=== PATIENT | female | born 1965 | race Caucasian/White ===

== ENCOUNTER → 2019-08-11 | Outpatient (CLI) | payer BC, OTHER | LOC: CAT 07:46 | DX: J34.89 Other specified disorders of nose and nasal sinuses (principal); J32.9 Chronic sinusitis, unspecified; Z88.0 Allergy status to penicillin ==

== ENCOUNTER → 2020-03-31 | Outpatient (CLI) | payer BC, OTHER | LOC: LAB 09:26 | PROVIDERS: ATTEND Family Medicine | DX: Z20.828 Contact with and (suspected) exposure to other viral communicable diseases (principal) ==

== ENCOUNTER → 2020-04-11 | Outpatient (CLI) | payer BC, OTHER | LOC: ULTRA 15:46 | PROVIDERS: ATTEND Family Medicine | DX: M79.89 Other specified soft tissue disorders (principal) ==

== ENCOUNTER → 2020-06-07 | Outpatient (CLI) | payer BC, OTHER | LOC: SJCVCIMAG 05-19 08:39 | PROVIDERS: ATTEND Internal Medicine | DX: R06.09 Other forms of dyspnea (principal); R60.0 Localized edema ==

== ENCOUNTER → 2020-07-13 | Outpatient (CLI) | payer BC, OTHER | LOC: LAB 07:59 | PROVIDERS: ATTEND Family Medicine | DX: U07.1 COVID-19 (principal) ==

== ENCOUNTER → 2021-01-19 | Outpatient (CLI) | payer BC, OTHER | LOC: BC 09:37 | PROVIDERS: ATTEND Family Medicine | DX: Z12.31 Encounter for screening mammogram for malignant neoplasm of breast (principal) ==